=== PATIENT | female | born 1940 | race Caucasian/White ===

== ENCOUNTER 2025-03-29 14:28 | Outpatient (CLI) | payer MEDICARE, BC ==
--- NOTE | 2025-03-29 17:00 | RADIOLOGY REPORT ---
EXAM: DI CHEST,TWO VIEWS HISTORY: FU CXR S/P ABX FOR PHEUMONIA COMPARISON: None TECHNIQUE: Frontal and lateral views of the chest were performed. FINDINGS: There is central peribronchial thickening. No pneumothorax, pleural effusions, or consolidative infil trates. The left pericardial fat pad is mildly prominent. The heart is not enlarged. The aortic arch is calcific. No fractures are identified about the bony thorax. 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 Surgical clips in the right upper quadrant are consistent with prior cholecystectomy . There is fecal retention in the partially visualized colon. IMPRESSION: 1. Reactive airways disease. The lungs are otherwise clear. 2. Atherosclerotic vascular disease. 3. Postoperative changes of cholecystectomy.
== END 2025-03-29 23:59 | disposition home or self-care (01) ==
LOC: RAD 14:28
PROVIDERS: ATTEND Nurse Practitioner Family
DX: J44.9 Chronic obstructive pulmonary disease, unspecified (principal); J18.9 Pneumonia, unspecified organism; I25.10 Atherosclerotic heart disease of native coronary artery without angina pectoris; Z90.49 Acquired absence of other specified parts of digestive tract
CPT/HCPCS: 71046